=== PATIENT | male | born 1960 ===

== ENCOUNTER 2022-03-26 15:43 | Emergency (ER) | payer SELFPAY ==
[2022-03-26 15:45] VITALS: BP 135/85; PULSE 77; RESP 16; TEMP 36.2; O2SAT 96
--- NOTE | 2022-03-26 15:45 | ECG_ITS ---
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 Measurements Intervals [place] Rate: 77 P: 19 FL: 152 QRS: 20 QRSD: 102 T: 31 QT: 396 QTc: 450 Interpretive Statements SINUS RHYTHM No previous ECG available for comparison Electronically Signed On 03-26-2022 16:23:55 CDT by Roselia Gonzales M.D. [id number]
--- NOTE | 2022-03-26 15:45 | XRR_ITS ---
PROCEDURE INFORMATION: Exam: XR Chest Exam date and time: 03/26/2022 4:26 PM Age: 62 years old Clinical indication: Pain; Angina pectoris; Additional info: Cp TECHNIQUE: Imaging protocol: XR of the chest. Views: 1 view. COMPARISON: No relevant prior studies available. FINDINGS: Lungs: Minor linear atelectasis or scarring noted at the left lung base. No consolidation. Pleural spaces: Unremarkable. No pleural effusion. No pneumothorax. Heart/Mediastinum: Unremarkable. No cardiomegaly. Bones/joints: Unremarkable. XR/XR chest 1V portable [id number] IMPRESSION: No acute findings.
--- NOTE | 2022-03-26 15:45 | PC.NURSE ---
Pt placed on bedside air sampling and monitoring and continuous pulse ox
--- NOTE | 2022-03-26 15:55 | CTR_ITS ---
PROCEDURE INFORMATION: Exam: CT Abdomen And Pelvis With Contrast Exam date and time: 03/26/2022 4:48 PM Age: 62 years old Clinical indication: Abdominal pain; Epigastric; Prior surgery; Surgery date: 6+ months; Surgery type: Appy; Additional info: Abd pain TECHNIQUE: Imaging protocol: Computed tomography of the abdomen and pelvis with contrast. Radiation optimization: All CT scans at this facility use at least one of these dose optimization techniques: automated exposure control; mA and/or kV adjustment per patient size (includes targeted exams where dose is matched to clinical indication); or iterative reconstruction. Contrast material: OMNIPAQUE 300; Contrast volume: 50 ml; Contrast route: INTRAVENOUS (IV); COMPARISON: CR XR chest 1V portable [id number] 03/26/2022 4:26 PM RADIATION DOSE METRICS: Total DLP (mGy-cm): 1857.51 FINDINGS: Liver: Normal. No mass. Gallbladder and bile ducts: Normal. No calcified stones. No ductal dilation. Pancreas: Please see stomach and bowel section. No ductal dilation. Spleen: Normal. No splenomegaly. Adrenal glands: Normal. No mass. Kidneys and ureters: Normal. No hydronephrosis. Stomach and bowel: Free fluid noted surrounding the proximal duodenum with mild mucosal hyperenhancement as well as the pancreatic duodenal groove and inferior to the pancreas. No obstruction. Appendix: Appendectomy. Intraperitoneal space: Unremarkable. No free air. No significant fluid collection. Vasculature: Unremarkable. No abdominal aortic aneurysm. Lymph nodes: Unremarkable. No enlarged lymph nodes. Urinary bladder: Unremarkable as visualized. Reproductive: Unremarkable as visualized. Bones/joints: No acute fracture. Soft tissues: Unremarkable. CT/CT abdomen pelvis w con* [id number] IMPRESSION: Free fluid centered around the proximal duodenum and inferior to the pancreas given which could reflect duodenitis and/or pancreatitis.
--- NOTE | 2022-03-26 16:00 | ED_ITS ---
HPI - Abdominal Pain General: Chief Complaint: Abdominal Pain Stated Complaint: ABDOMINAL/ CHEST PAIN Time Seen by Provider: 03/26/22 15:44 Source: patient and EMS Mode of arrival: EMS Limitations: no limitations History of Present Illness: 62-year-old male states that he has been having epigastric abdominal pain has been severe in nature started 1 hour ago. 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 [place] he states he had a another episode months ago same but was never got diagnoses that he cannot figure out what was causing it he has no history of alcoholism he has had an appendectomy he denies any chest pain to me his pain is all epigastric has had some nausea no vomiting Associated Symptoms: Denies chills, dysuria and fever(s) Review of Systems Const: Denies: fever(s), chills, body aches or change in appetite Eyes: Denies: blurry vision or eye discomfort ENMT: Denies: throat pain or dental pain Card: Denies: chest pain Resp: Denies: dyspnea GI: Reports: abdominal pain : Denies: dysuria Musc: Denies: neck pain or back pain Skin/Breast: Denies: rash Neuro: Denies: headache(s) Psych: Denies: depression Jose/Lymph: Denies: easy bruising All/Imm: Denies: urticaria PFSH ED PFSH: Surgical History (Updated 03/26/22 @ 16:01 by Johnny Abdi MD) History of appendectomy Social History (Updated 03/26/22 @ 16:01 by Johnny Abdi MD) Substance/Drug Use: never Physical Exam Const: COMMON NORMALS: no acute distress, patient oriented x3 and healthy appearing HENMT: COMMON NORMALS: normocephalic and atraumatic HEAD & SCALP: normocephalic and atraumatic Eye: COMMON NORMALS: Equal, round and reactive pupils present and EOMs intact bilaterally PUPIL: Yes Equal, round and reactive pupils present Neck/C-Spine: COMMON NORMALS: full ROM and supple Chest: COMMONS NORMALS: normal inspection of the chest and normal palpation of entire chest wall Resp: COMMON NORMALS: normal respiratory effort, No retractions, No use of accessory muscles and clear to auscultation bilaterally AUSCULTATION: clear to auscultation bilaterally Cardio: COMMON NORMALS: regular rate, regular rhythm and No murmurs present (Cardio) RATE: regular rate RHYTHM: regular rhythm GI: COMMON NORMALS: Normal to inspection, nondistended, normoactive bowel s ounds present, Soft to palpation and no masses PALPATION: Yes Soft to pal pation OTHER: epigastric tenderness Extremity: COMMON NORMALS: normal to inspection and full ROM Neuro: COMMON NORMALS: patient oriented x3, moves all extremities and no focal motor deficits Psych: COMMON NORMALS: mental status grossly normal, Normal thought process present and cooperative THOUGHT PROCESS: Normal thought process present Skin: COMMON NORMALS: no rashes or lesions noted and no wounds GENERAL SKIN EXAM: no rashes or lesions noted Course Vital Signs: Vital signs: Vital Signs Temperature 97.2 F L 03/26/22 15:45 Pulse Rate 75 03/26/22 18:30 Respiratory Rate 18 03/26/22 20:10 Blood Pressure 173/97 03/26/22 18:30 Pulse Oximetry 95 03/26/22 18:30 MDM - Abdominal Pain Medical Decision Making Patient presents here with abdominal pain was found to have pancreatitis does have an elevated bilirubin as well as concern for possible gallstone pancreatitis will transfer for higher level of care for GI for possible ERCP spoke to physician in [place] and will transfer there. Lab Data : 03/26/22 15:50 03/26/22 15:50 Labs/Radiology: Radiology Impressions Chest X-Ray 03/26/22 15:45 IMPRESSION: No acute findings. Abdomen/Pelvis CT 03/26/22 15:55 IMPRESSION: Free fluid centered around the proximal duodenum and inferior to the pancreas given which could reflect duodenitis and/or pancreatitis. Laboratory Results WBC 20.1 10^3/uL (4.0-10.0) H 03/26/22 15:50 RBC 4.84 10^6/uL (4.1-5.3) 03/26/22 15:50 Hgb 15.9 g/dL (11.7-16.6) 03/26/22 15:50 Hct 45.3 % (42.0-52.0) 03/26/22 15:50 MCV 93.6 fl (80-94) 03/26/22 15:50 MCH 32.9 pg (28.0-34.0) 03/26/22 15:50 MCHC 35.1 g/dL (30.0-36.0) 03/26/22 15:50 RDW 16.9 % (12.1-15.1) H 03/26/22 15:50 Plt Count 410 10^3/cmm (130-400) H 03/26/22 15:50 MPV 11.5 fL (7.4-10.4) H 03/26/22 15:50 Neut % (Auto) 52.8 % 03/26/22 15:50 Lymph % (Auto) 38.5 % 03/26/22 15:50 Pike % (Auto) 6.1 % 03/26/22 15:50 Eos % (Auto) 1.3 % 03/26/22 15:50 Baso % (Auto) 0.6 % 03/26/22 15:50 Neut # (Auto) 10.59 10^3/uL (1.8-7.7) H 03/26/22 15:50 Lymph # (Auto) 7.7 10^3/uL (0.8-4.8) H 03/26/22 15:50 Pike # (Auto) 1.2 10^3/uL (0.2-0.9) H 03/26/22 15:50 Eos # (Auto) 0.3 10^3/uL (0.0-0.8) 03/26/22 15:50 Baso # (Auto) 0.1 10^3/uL (0.0-0.1) 03/26/22 15:50 Nucleated RBC % (auto) 0.1 % 03/26/22 15:50 Nucleated RBCs # 0.0 /100WBC 03/26/22 15:50 PT 12.40 SECONDS (12.1-14.9) 03/26/22 15:50 INR 0.90 (0.8-1.2) 03/26/22 15:50 Sodium 140 mmol/L (136-145) 03/26/22 15:50 Potassium 3.8 mmol/L (3.5-5.1) 03/26/22 15:50 Chloride 100 mmol/L (98-107) 03/26/22 15:50 Carbon Dioxide 22 mmol/L (22-29) 03/26/22 15:50 Anion Gap 21.8 (5-19) H 03/26/22 15:50 BUN 10 mg/dL (8-23) 03/26/22 15:50 Creatinine 1.2 mg/dL (0.7-1.2) 03/26/22 15:50 GFR Calculation 61.6 mL/min (90-130) L 03/26/22 15:50 Glucose 148 mg/dL (65-115) H 03/26/22 15:50 Calculated Osmolality 292 mOsm/kg (285-295) 03/26/22 15:50 Calcium 9.3 mg/dL (8.5-10.5) 03/26/22 15:50 Total Bilirubin 5.3 mg/dL (0.15-1.2) H 03/26/22 15:50 AST 140 U/L (0-40) H 03/26/22 15:50 ALT 278 U/L (0-41) H 03/26/22 15:50 Alkaline Phosphatase 281 IU/L (40-130) H 03/26/22 15:50 Troponin T Baseline 9 ng/L (0-15) 03/26/22 15:50 Troponin T 120 Minute 6.00 ng/L (0-15) 03/26/22 17:41 Delta Troponin T Not Reportable 03/26/22 17:41 Total Protein 8.0 g/dL (6.6-8.7) 03/26/22 15:50 Albumin 5.2 g/dL (3.5-5.2) 03/26/22 15:50 Globulin 2.8 g/dL (1.3-4.6) 03/26/22 15:50 Lipase > 53559 U/L (13-60) H 03/26/22 15:50 EKG Data EKG 1: I personally reviewed and interpreted this EKG as follows: EKG interpretation date: 03/26/22 EKG interpretation time: 15:49 Interpretation: nsr hr [address] or t wave abnormalities qrs 102 qtc 428 Critical Care Time Critical Care Time: Critical Care Time: Yes Total Critical Care Time: 40 Attestation: The high probability of a clinically significant, sudden or life threatening deterioration of the patient's abd system(s) required my full and direct attention, intervention and personal management. The critical care time is as shown. This time is in addition to time spent performing any reported procedures but includes the following: [x] Data and vital sign review and interpretation [x] Patient assessment, examination and intervention [x] Documentation [x] Medication orders and management Discharge Plan Discharge Patient Disposition: Xfer Short-Term Hosp Clinical Impression: Acute pancreatitis, Elevated bilirubin Coding Level of Care Code ED Cardiovascular Specialist for [place] Fwd Exam Comprehensive
[2022-03-26] MEDS: HYDROmorphone 1 mg/mL INJ 1 mL IVP ×3 (16:02→20:10)
[2022-03-26] MEDS: sodium chloride 0.9% 1,000 ML 999 ML IV ×2 (16:03→20:10)
[2022-03-26 16:15] LABS: Basophils # 0.1 10^3/uL (0.0-0.1); Basophils % 0.6 %; Eosinophils # 0.3 10^3/uL (0.0-0.8); Eosinophils % 1.3 %; Hematocrit 45.3 % (42.0-52.0); Hemoglobin 15.9 g/dL (11.7-16.6); Lymphocytes # 7.7 10^3/uL (0.8-4.8); Lymphocytes % 38.5 %; Mean Corpuscular HGB Conc 35.1 g/dL (30.0-36.0); Mean Corpuscular Hemoglobin 32.9 pg (28.0-34.0); Mean Corpuscular Volume 93.6 fl (80-94); Mean Platelet Volume 11.5 fL (7.4-10.4); Monocytes # 1.2 10^3/uL (0.2-0.9); Monocytes % 6.1 %; Neutrophils # 10.59 10^3/uL (1.8-7.7); Neutrophils % 52.8 %; Nucleated Red Blood Cells % 0.1 %; Platelet Count 410 10^3/cmm (130-400); Red Blood Count 4.84 10^6/uL (4.1-5.3); Red Cell Distribution Width 16.9 % (12.1-15.1); White Blood Count 20.1 10^3/uL (4.0-10.0)
--- NOTE | 2022-03-26 16:17 | PC.PHAR ---
pt states he takes care of his own medications-pt states he only takes some medications to lower his triglycerides-called [facility] they state they last filled 12/16/21 90d/s fenofibrate 160mg daily-
[2022-03-26 16:27] VITALS: BP 122/88; PULSE 77; RESP 18; O2SAT 93
[2022-03-26 16:32] LABS: Troponin(5th) Baseline 9 ng/L (0-15)
[2022-03-26 16:33] LABS: Alanine Aminotransferase 278 U/L (0-41); Albumin Level 5.2 g/dL (3.5-5.2); Alkaline Phosphatase 281 IU/L (40-130); Aspartate Amino Transferase 140 U/L (0-40); Blood Urea Nitrogen 10 mg/dL (8-23); Calcium 9.3 mg/dL (8.5-10.5); Carbon Dioxide 22 mmol/L (22-29); Chloride 100 mmol/L (98-107); Globulin 2.8 g/dL (1.3-4.6); Glomerular Filtration Rate 61.6 mL/min (90-130); Glucose 148 mg/dL (65-115); Osmolality Calculated 292 mOsm/kg (285-295); Sodium 140 mmol/L (136-145); Total Bilirubin 5.3 mg/dL (0.15-1.2)
[2022-03-26 16:34] LABS: Anion Gap 21.8 (5-19); Potassium 3.8 mmol/L (3.5-5.1)
[2022-03-26] MEDS: iohexol 300 mg/mL 50 mL Btl IV (16:57)
[2022-03-26 17:06] VITALS: RESP 16
--- NOTE | 2022-03-26 17:45 | ECG_ITS ---
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 Measurements Intervals [place] Rate: 73 P: 26 [place]: 144 QRS: 19 QRSD: 97 T: 46 QT: 408 QTc: 452 Interpretive Statements SINUS RHYTHM Compared to ECG 03/26/2022 15:49:08 No significant changes Electronically Signed On 03-27-2022 10:20:14 CDT by Roselia Gonzales M.D. [id number]
[2022-03-26] MEDS: piperacillin-tazobactam 3.375 GM in sodium chloride 0.9% (plus) 50 ML IV (18:13)
[2022-03-26 18:30] VITALS: BP 173/97; PULSE 75; RESP 16; O2SAT 95
[2022-03-26 20:10] VITALS: RESP 18
[2022-03-26 20:41] VITALS: BP 144/84; PULSE 74; RESP 18; O2SAT 96
[2022-03-26 20:52] LABS: Chol HDL Ratio 3.64 mg/dL (1.0-5.00); Cholesterol 200 mg/dL (0-200); HDL Cholesterol 55 mg/dL (60-100); LDL Cholesterol Calculated 99 mg/dL (50-129); Triglycerides 230 mg/dL (0-150)
--- NOTE | 2022-03-26 21:45 | ECG_ITS ---
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 Measurements Intervals [place] Rate: 81 P: 38 [place]: 124 QRS: 1 QRSD: 96 T: 8 QT: 381 QTc: 444 Interpretive Statements SINUS RHYTHM Compared to ECG 03/26/2022 19:45:16 No significant changes Electronically Signed On 03-27-2022 13:01:39 CDT by Josh Dillon M.D. [id number]
== END 2022-03-26 22:55 | disposition short-term general hospital (02) ==
PROVIDERS: Emergency Provider Emergency Medicine
DX: K85.90 Acute pancreatitis without necrosis or infection, unspecified (principal); E80.7 Disorder of bilirubin metabolism, unspecified
CPT/HCPCS: 36415; 71045; 74177; 80053; 80061; 83690; 84484; 85025; 85610; 93005; 96365; 96375; 96376; 99285; J1170; J2543; J7030; Q9967